=== PATIENT | female | born 1980 | race Caucasian/White ===

== ENCOUNTER 2018-02-28 00:23 | Observation (INO) | payer BC ==
[~2018-02-28] VITALS: Ht 167.6 cm; Wt 75.3 kg
[2018-02-28] VITALS (7 sets, daily range): BP systolic 88–103; BP diastolic 50–68
[~2018-02-28 00:23] MED LIST: ACET-3017 PO; IBUP-2704 PO; PNV1TABL70 PO; SCOP1PAT16 TD
[2018-02-28] MEDS ORDERED: NORMOSOL R SOLN(*) 1000 ML BAG 1,000 ML IV PRN (06:30)
[2018-02-28] MEDS ORDERED: cefOXitin/DEX(*) 2GM/50ML PREM 50 ML IVPB ONE (06:30)
[2018-02-28] MEDS ORDERED: LIDOCAINE/SOD BICARB 8.4% SYR ID ONE (06:30)
[2018-02-28] MEDS ORDERED: FAMOTIDINE 20 MG TAB PO ONE (06:30)
[2018-02-28] MEDS ORDERED: MIDAZOLAM 2 MG/2 ML VIAL IVP PRN (06:30)
[2018-02-28] MEDS ORDERED: ONDANSETRON 4 MG/2 ML VIAL ONE (10:03)
[2018-02-28] MEDS ORDERED: DEXAMETHASONE SOD 4 MG/ML VIAL ONE (10:03)
[2018-02-28] MEDS ORDERED: PROPOFOL EMUL(*) 10MG/ML 20 ML 20 ML ONE (10:03)
[2018-02-28] MEDS ORDERED: SUGAMMADEX SOD 200 MG/2 ML SDV ONE (10:03)
[2018-02-28] MEDS ORDERED: LIDOCAINE MPF 1% 5 ML VIAL ONE (10:03)
[2018-02-28] MEDS ORDERED: ROCURONIUM BROM 10 MG/ML 10 ML ONE (10:03)
[2018-02-28] MEDS ORDERED: fentaNYL CITR 250 MCG/5 ML AMP ONE ×2 (10:04→10:05)
[2018-02-28] MEDS ORDERED: VASOPRESSIN 20 UNIT/ML VIAL ONE (10:05)
[2018-02-28] MEDS ORDERED: MANNITOL* (20%)100 GM/500ML BG 500 ML IVPB ONE (10:05)
[2018-02-28] MEDS ORDERED: NS(*) 0.9% 100 ML BAG 100 ML ONE (10:05)
[2018-02-28] MEDS ORDERED: ROPIVACAINE 0.2% 20 ML VIAL ONE (10:05)
[2018-02-28] MEDS ORDERED: ESTROGENS CONJ VAG CREAM 30 GM TUBE PV ONE (10:05)
[2018-02-28] MEDS ORDERED: KETAMINE HCL-NS 50 MG/5 ML SYR ONE (10:06)
[2018-02-28 10:18] LABS: PLATELET COUNT, AUTOMATED 211 K/uL (150-450)
[2018-02-28] MEDS ORDERED: HYDROmorphone HCL 2 MG/ML SDV ONE (10:20)
[2018-02-28] MEDS ORDERED: KETOROLAC 30 MG/ML VIAL ONE (12:39)
[2018-02-28] MEDS ORDERED: SIMETHICONE 80 MG CHEW CHEW PRN (13:20)
[2018-02-28] MEDS ORDERED: ONDANSETRON 4 MG/2 ML VIAL IV PRN (13:20)
[2018-02-28] MEDS ORDERED: ACETAMINOPHEN 325 MG TAB PO PRN (13:20)
[2018-02-28] MEDS ORDERED: HYDROmorphone HCL 2 MG TAB PO PRN (13:20)
[2018-02-28] MEDS ORDERED: ZOLPIDEM TARTRATE 10 MG TAB PO PRN (13:20)
[2018-02-28] MEDS ORDERED: PROMETHAZINE 25 MG/ML 1 ML AMP IVP PRN (13:20)
[2018-02-28] MEDS ORDERED: IBUP800T37 PO (13:26)
[2018-02-28] MEDS ORDERED: OXYC-865 PO (13:26)
[2018-02-28] MEDS ORDERED: DOCU-416 PO (13:26)
--- NOTE | 2018-02-28 13:27 | Post Operative Note ---
Operative Note - CUSTOMER RETENTION REPRESENTATIVE Operative Day Date: Feb 28, 2018 Time: 13:25 Physicians Surgeon: Lucille Senior Java Engineer: Marnie Monroe Anesthesia: GETA Diagnosis Pre-Op Diagnosis: Dysmenorrha Dyspareunia menorrhagia Post-Op Diagnosis: same Procedure Findings: enlarged uterus normal ovaries grade 2 rectocele Procedure(s): RATLH bilateral salpingectomy MMC cystoscopy posterior repair Specimen Removed:(Maybe N/A): uterus, tubes Complications: [id number] Fluids Fluids: 1600 ml Estimated Blood Loss: minimal Dictated Date OP Note Dictated: Feb 28, 2018 Time OP Note Dictated: 13:27 Copies to: ROMELIA MADRIGAL MD ; ROMELIA MADRIGAL MD Feb 28, 2018 13:27
--- NOTE | 2018-02-28 14:11 | OPERATIVE REPORT 1 ---
EVENT DATE: February 28, 2018 SURGEON: Baldemar Adkins MD ANESTHESIOLOGIST: Koby Fitzpatrick MD ANESTHESIA: General endotracheal. UPPER EXTREMITY SURGEON: Marnei Monroe PA-C PREOPERATIVE DIAGNOSIS 1. Deep dyspareunia. 2. Menorrhagia. 3. Secondary dysmenorrhea. 4. Rectocele. POSTOPERATIVE DIAGNOSIS 1. Deep dyspareunia. 2. Menorrhagia. 3. Secondary dysmenorrhea. 4. Rectocele. PROCEDURE PERFORMED 1. Robotic assisted total laparoscopic hysterectomy. 2. Bilateral salpingectomy. 3. Modified Avalos's culdoplasty. 4. Diagnostic cystoscopy. 5. Posterior colporrhaphy. ESTIMATED BLOOD LOSS Minimal. FLUIDS 1600 cc IV Crystalloid. URINE OUTPUT Not measured. FINDINGS Enlarged boggy appearing uterus with lateral varicosities, normal appearing ovaries and tubes bilaterally, normal bladder with excellent urine jets post procedure, grade II distal rectocele. DESCRIPTION OF PROCEDURE The patient was brought to the operating room and placed under general endotracheal anesthesia. She was moved to the dorsal lithotomy position and prepped and draped in the usual sterile fashion. A weighted speculum was placed in the vagina and the cervix was grasped on the anterior lip with a single tooth tenaculum. The uterus was carefully sounded to a depth of 9 cm. A large VCare uterine manipulator was selected and assembled. The cervix was dilated to accommodate it. It was passed through the cervix and into the uterus, bulb inflated, and secured and the VCare cup was sutured to the cervix. The pneumocup was approximated against this cup and secured in place. A Raymond catheter was placed to dependent drainage. The legs were brought back to the supine position and gloves were changed. The target anatomy was approximated and we measured 12 cm above which ended up being the superior umbilicus. It was infiltrated with 0.2% Naropin and an 8 mm stab incision was made. The anterior abdominal wall was elevated while the Veress needle was passed through this incision into the abdomen and negative pressure was observed on the insufflator with elevating of the anterior abdominal wall, confirming an intraabdominal presence. The pneumoperitoneum was created to an intraabdominal pressure of 20 mmHg. The Veress needle was removed and an 8 mm bladeless trocar was passed through this incision into the abdomen under direct visualization with the scope and performed without incident. Additional ports were placed as follows: A robotic port 8 cm left lateral to the umbilical port and an shampoo assistant port 8 mm left lateral to this port. These were placed under direct visualization and under a similar technique, to the right two additional robotic ports spaced cm apart under direct visualization with the scope. The patient was then moved to the Trendelenburg position at 23 degrees and bowel was swept out of the pelvis. The abdomen and pelvis wee surveyed with the above findings noted. The robot was then brought overlying the patient and was docked and targeted without incident. Each arm was positioned and docked with the appropriate instruments, with the Vessel Sealer on the robotic arm #1, camera on #2, monopolar scissors on #3 and ProGrasp on #4. All instruments were guided into the patient's abdomen under direct visualization. All ports were burped and approximated for remote center. Upon completion, I scrubbed out of the patient's bedside and presented at the console. The hysterectomy proceeded as follows: The right fallopian tube was grasped and put on stretch. It was dissected away from its pelvic attachment through the mesosalpinx, up to the uteroovarian ligament. This was then cauterized and transected with the Vessel Sealer. This proceeded up through the round ligament which was in likewise fashion, cauterized and transected entering the broad ligament. This was then in the anterior and posterior leaflets. The anterior dissection was performed, dissecting the bladder away from the lower uterine segment and exposing the indentation of the underlying VCare cup. Anterior colpotomy incision was then performed to identify this cup. Posteriorly, the uterine vasculature was skeletonized in a similar fashion and the uterine vessels were taken at a perpendicular angle in two separate bites with the Vessel Sealer and transected. Parallel bites along the lateral uterus down to and overlying the VCare cup was then performed without incident. The same procedure was followed on the contralateral side. In likewise fashion, dissecting away the tube through the mesosalpinx, cauterizing and transecting the uteroovarian ligament, cauterizing and transecting the round ligament, and entering the broad ligament into anterior and posterior leaflets, completing the anterior dissection and skeletonizing the vessels on this side posteriorly down to the uterosacral ligament. The uterine vessels were then cauterized at a perpendicular angle times 2 and transected and parallel bites along the lateral uterus down to and overlying the VCare cup was then performed allowing that vascular pedicle to fall away. The colpotomy incision was further extended anteriorly and circumferentially around the uterus, through the uterosacral ligaments bilaterally, and to the contralateral side completing the colpotomy incision. The uterus was removed through the vagina. Instruments were changed and the vaginal repair procedure as follows: The right vaginal angle was sutured with a 0 Vicryl and secured to the ipsilateral uterosacral ligament in a [id number] fashion. The same procedure was followed on the contralateral side. The remaining vaginal cuff was then repaired using a 2-0 V-Loc in a running unlocking fashion. The entire incision was then oversewn back towards the right side to further reinforce and support the vaginal repair. No visible complications. The pelvis was copiously irrigated and suctioned dry. All instruments were then removed from the patient. The robot was then docked. The pneumoperitoneum was suctioned out. Trocars were removed. The skin incisions were repaired with a 4-0 Monocryl subdermal and covered with Dermabond skin adhesive. Diagnostic cystoscopy was performed with no visible injuries to the bladder and both ureteral orifices with excellent strong urine jets confirming ureteral patency. The bladder was allowed to drain and we proceeded now with the posterior repair. The legs were brought back to the lithotomy position. The area was inspected. A distal grade II rectocele was observed. The trista shaped wedge resection of the perineal body was performed in order to rebuild the perineal body and a linear incision along the length of the defect was then made after infiltrating with a diluted Pitressin solution. The vaginal mucosa was dissected away from the underlying endopelvic fascia. 2-0 Vicryl was then used to create a running purse string stitch to reduce the size of the defect, followed by Joi plication stitches along the length of the defect and oversewing this times two. A finger was then inserted into the rectum to palpate the repair and site specific additional repair was performed. Gloves were changed and the excess vagina was trimmed away. The remaining vaginal cuff was repaired using a 2-0 Vicryl in a running locking stitch and the perineal body was rebuilt as is typical for second degree obstetrical repair with an excellent result. No visible complications. The vaginal was then packed with a Kerlix sponged moistened with Premarin cream. The Raymond catheter was replaced to dependent drainage. She tolerated the procedure well. Legs were brought back to the supine position. She was awakened from general anesthesia in stable condition. Sponge, lap, needle and instrument counts were all correct times 2. MTDD
[2018-02-28] MEDS: DLR(*) 1000 ML BAG 1,000 ML IV PRN ×2 (16:49→23:17)
[2018-02-28] MEDS: KETOROLAC 30 MG/ML VIAL IVP SCH ×2 (18:18→23:19)
--- NOTE | 2018-02-28 20:55 | OB/GYN Progress Note ---
OB Subjective Progress Notes Subjective Feeling well. Some discomfort from the vaginal packing but no outright pain. Toradol IV is holding her well. Ambulating well. 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 Packing and weinberg out in the AM. Recommending continue stool softeners until seen in office again at 2 weeks. Call with problems or complications. (2) History of robot-assisted laparoscopic hysterectomy ROMELIA MADRIGAL MD Feb 28, 2018 20:55
[2018-02-28] MEDS: FAMOTIDINE 20 MG TAB PO SCH (23:02)
[2018-02-28] MEDS: DOCUSATE CALCIUM 240 MG CAP PO SCH (23:02)
[2018-03-01 03:30] VITALS: BP 107/70
[2018-03-01] MEDS: KETOROLAC 30 MG/ML VIAL IVP SCH (05:54)
[2018-03-01 06:18] LABS: PLATELET COUNT, AUTOMATED 176 K/uL (150-450)
--- NOTE | 2018-03-01 08:23 | OB/GYN Discharge Summary ---
Discharge Summary Reason for Hosp/Final Diag: (1) Other specified aftercare following surgery Hospital Course & Plan: Reviewed her discharge instructions. Packing and weinberg removed this am without complication. Recommending continue stool softeners until seen in office again at 2 weeks. Call with problems or complications. (2) History of robot-assisted laparoscopic hysterectomy [place] Vital Signs Vital Signs Date Time Temp Pulse Resp B/P (MAP) Pulse Ox O2 Delivery O2 Flow Rate FiO2 03/01/18 05:30 18 Room Air 03/01/18 04:30 90 03/01/18 03:30 99.3 69 107/70 (82) 02/28/18 19:00 2.0 Weight (Pounds): 166 Weight (Ounces): 2.0 Result Diagram: 03/01/18 0600 Condition: Improved Discharge: Home, Self Longterm Meds Active Scripts Oxycodone Hcl/Acetaminophen (PERCOCET 5-325 MG TABLET) 1 Each Tablet, 1 EACH PO Q4-6H PRN for PAIN, #20 TAB 0 Refills TAKE 1 TABLET NEEDED FOR PAIN - NO CLOSER THAN EVERY 4-6 HOURS. Prov:IAN SIMMS 02/28/18 Reported Medications Scopolamine (Scopolamine) 1 Mg/3 Day Patch.td.3, 1.[address] BEHIND EAR AT BEDTIME NIGHT BEFORE SURGERY 02/26/18 [facility] [phone], Dr. Adkins [phone] Follow up in: 2 wks PO Discharge Diet: As Tolerates Discharge Activity: No Heavy Lifting x 6 wks, Pelvic Rest Special Instructions: No driving on narcotic pain medication. Pelvic rest x 6 weeks. IAN SIMMS Mar 01, 2018 08:23
--- NOTE | 2018-03-01 08:25 | OB/GYN Progress Note ---
OB Subjective Progress Notes Subjective POD #1 from RAH and posterior repair. Packing and weinberg removed this morning without significant bleeding. She has been tolerating PO without nausea or vomiting. Ambulating. GI: POS Flatus; NEG Nausea, NEG Vomiting : Vaginal Bleeding, Scant Pain: Moderate, Tolerating PO Pain Meds OB Objective Physical Exam Vital Signs Date Time Temp Pulse Resp B/P (MAP) Pulse Ox O2 Delivery O2 Flow Rate FiO2 03/01/18 05:30 18 Room Air 03/01/18 04:30 90 03/01/18 03:30 99.3 69 107/70 (82) 02/28/18 19:00 2.0 Intake and Output 03/01/18 07:00 Intake Total 3250 ml Output Total 1900 ml Balance 1350 ml Intake Oral 500 ml IV Total 2750 ml Output Urine Total 1900 ml General Appearance: Alert/Awake/No Acute Distress Respiratory: No Respiratory Distress Abdomen: Soft, Non-Tender, Non-Distended Incision: Clean, Dry, Intact, Dermabond Extremities: No Cyanosis,Clubbing or Edema Psychological: Alert & Oriented X3, Appropriate Mood & Affect Result Diagram: 03/01/18 0600 Assessment and Plan Post Op Day: 1 Problems: (1) Other specified aftercare following surgery Assessment & Plan: Reviewed her discharge instructions. Packing and weinberg removed this am without complication. Discharge home today if able to void after weinberg removal. Recommending continue stool softeners until seen in office again at 2 weeks. Call with problems or complications. (2) History of robot-assisted laparoscopic hysterectomy IAN SIMMS Mar 01, 2018 08:25
[2018-03-01] MEDS ORDERED: INFLUENZA VIRUS VAC 0.5ML SYR IM ONLY ONE (09:00)
[2018-03-01] MEDS: FAMOTIDINE 20 MG TAB PO SCH (09:06)
[2018-03-01] MEDS: DOCUSATE CALCIUM 240 MG CAP PO SCH (09:06)
[2018-03-01 09:10] VITALS: BP 102/68
[2018-03-01] MEDS ORDERED: IBUPROFEN 800 MG TAB PO PRN (12:00)
== END 2018-03-01 08:21 | disposition home or self-care (01) ==
LOC: OR 00:23 → INTOOBSV 14:45 → OB 14:45
PROVIDERS: ADMIT Obstetrics & Gynecology; ATTEND Obstetrics & Gynecology
DX: N72 Inflammatory disease of cervix uteri (principal); N94.12 Deep dyspareunia; N94.5 Secondary dysmenorrhea; N92.0 Excessive and frequent menstruation with regular cycle; N81.6 Rectocele
CPT/HCPCS: 36415; 58571; 84703; 85025; 88307; 96372; G0378; J0694; J1100; J1170; J1885; J2001; J2250; J2405; J2704; J2795; J3010; J3490; J7050; S2900

== ENCOUNTER 2018-03-06 23:35 | Day surgery (SDC) | payer BC ==
[~2018-03-06 23:35] MED LIST changes: +DOCU-416 PO; +IBUP800T37 PO; +OXYC-865 PO
--- NOTE | 2018-03-06 23:40 | ER Report ---
History and Physical Time Seen By MD: 23:37 HPI/ROS CHIEF COMPLAINT: Vaginal bleeding HISTORY OF PRESENT ILLNESS: 37 year-old female status post 7 days postop from a robotic-assisted hysterectomy and vaginal cuff repair by Dr. Adkins. Patient christiane, 9 PM began to have some vaginal bleeding. Initially she passed a few thumb-sized clots. Now she passed a large clot. She is sent in for evaluation by Dr. Adkins. Patient reports no pain. She's had no fever or chills. REVIEW OF SYSTEMS: Respiratory: No cough, no dyspnea. Cardiovascular: No chest pain, no palpitations. Gastrointestinal: No vomiting, no abdominal pain. Musculoskeletal: No back pain. Allergies: Coded Allergies: No Known Drug Allergies (Unverified , 03/06/18) Home Meds Active Scripts Docusate Sodium (COLACE) 100 Mg Capsule, 100 MG PO BID PRN for CONSTIPATION for 10 Days, #20 CAPSULE Prov:IAN SIMMS 02/28/18 Oxycodone Hcl/Acetaminophen (PERCOCET 5-325 MG TABLET) 1 Each Tablet, 1 EACH PO Q4-6H PRN for PAIN, #20 TAB 0 Refills TAKE 1 TABLET NEEDED FOR PAIN - NO CLOSER THAN EVERY 4-6 HOURS. Prov:IAN SIMMS 02/28/18 Ibuprofen (IBUPROFEN) 800 Mg Tablet, 1 TAB PO Q8H, #30 TAB 0 Refills Take with food every 8 hours. Prov:IAN SIMMS 02/28/18 Discontinued Reported Medications Scopolamine (Scopolamine) 1 Mg/3 Day Patch.td.3, 1.[address] BEHIND EAR AT BEDTIME NIGHT BEFORE SURGERY 02/26/18 Reviewed Nurses Notes: Yes Old Medical Records Reviewed: Yes Hx Smoking: No Smoking Status: Never Smoker Exposure to Second Hand Smoke?: No Hx Substance Use Disorder: No Hx Alcohol Use: No Constitutional Vital Sign - Last 24 Hours 03/06/18 03/06/18 03/06/18 03/07/18 23:41 23:42 23:50 00:00 Temp 98.7 Pulse 67 72 Resp 18 B/P (MAP) 128/87 (101) 128/87 126/85 (99) Pulse Ox 96 95 O2 Delivery Room Air 03/07/18 03/07/18 03/07/18 03/07/18 00:05 00:20 00:30 00:35 Pulse 74 63 70 B/P (MAP) 115/84 (94) Pulse Ox 95 95 98 03/07/18 03/07/18 03/07/18 00:50 00:55 01:00 Pulse 78 66 B/P (MAP) 115/82 (93) Pulse Ox 94 94 96 Physical Exam General Appearance: The patient is alert, has no immediate need for airway protection and no current signs of toxicity. Vital signs stable, afebrile, pulse ox normal Eyes: Pupils equal and round no injection. Respiratory: Chest is non tender, lungs are clear to auscultation. Cardiac: regular rate and rhythm Gastrointestinal: Abdomen is soft and non tender, no masses, bowel sounds normal. Genital: Examination of the vaginal vault. There is dehiscence over on the left side. There is active bleeding. The top of the vaginal cuff. Musculoskeletal: Neck: Neck is supple and non tender. Extremities have full range of motion and are non tender. Skin: No rashes or lesions. DIFFERENTIAL DIAGNOSIS: After history and physical exam differential diagnosis was considered for postoperative vaginal bleeding, vaginal cuff repair, suture dehiscence Medical Decision Making Data Points Result Diagram: 03/07/18 0000 Laboratory Hematology Test 03/07/18 00:00 Red Blood Count 4.57 M/uL (4.17-5.56) Mean Corpuscular Volume 90.8 fL (80.0-96.0) Mean Corpuscular Hemoglobin 31.2 pg (26.0-33.0) Mean Corpuscular Hemoglobin Concent 34.4 g/dL (32.0-36.0) Red Cell Distribution Width 12.4 % (11.5-14.5) Mean Platelet Volume 9.5 fL (7.2-11.1) Neutrophils (%) (Auto) 63.7 % (39.4-72.5) Lymphocytes (%) (Auto) 25.5 % (17.6-49.6) Monocytes (%) (Auto) 7.5 % (4.1-12.4) Eosinophils (%) (Auto) 3.0 % (0.4-6.7) Basophils (%) (Auto) 0.3 % (0.3-1.4) Nucleated RBC Relative Count (auto) 0.1 /100WBC Neutrophils # (Auto) 7.1 K/uL (2.0-7.4) Lymphocytes # (Auto) 2.9 K/uL (1.3-3.6) Monocytes # (Auto) 0.8 K/uL (0.3-1.0) Eosinophils # (Auto) 0.3 K/uL (0.0-0.5) Basophils # (Auto) 0.0 K/uL (0.0-0.1) Nucleated RBC Absolute Count (auto) 0.01 K/uL Chemistry Test 03/07/18 00:00 White Blood Count 11.2 k/uL (4.5-11.0) Red Blood Count 4.57 M/uL (4.17-5.56) Hemoglobin 14.3 g/dL (12.0-16.0) Hematocrit 41.5 % (34.0-47.0) Mean Corpuscular Volume 90.8 fL (80.0-96.0) Mean Corpuscular Hemoglobin 31.2 pg (26.0-33.0) Mean Corpuscular Hemoglobin Concent 34.4 g/dL (32.0-36.0) Red Cell Distribution Width 12.4 % (11.5-14.5) Platelet Count 174 K/uL (150-450) Mean Platelet Volume 9.5 fL (7.2-11.1) Neutrophils (%) (Auto) 63.7 % (39.4-72.5) Lymphocytes (%) (Auto) 25.5 % (17.6-49.6) Monocytes (%) (Auto) 7.5 % (4.1-12.4) Eosinophils (%) (Auto) 3.0 % (0.4-6.7) Basophils (%) (Auto) 0.3 % (0.3-1.4) Nucleated RBC Relative Count (auto) 0.1 /100WBC Neutrophils # (Auto) 7.1 K/uL (2.0-7.4) Lymphocytes # (Auto) 2.9 K/uL (1.3-3.6) Monocytes # (Auto) 0.8 K/uL (0.3-1.0) Eosinophils # (Auto) 0.3 K/uL (0.0-0.5) Basophils # (Auto) 0.0 K/uL (0.0-0.1) Nucleated RBC Absolute Count (auto) 0.01 K/uL ED Course/Re-evaluation Clinical Indication for ER IV: Hydration, IV Access ED Course Patient was admitted to an examination room. H&P was done. The differential diagnoses was considered. On clinical examination. On initial examination of the vaginal cuff. There was no active bleeding. A bunch of large clots were removed. There appeared to be a fresh dark clot in the left upper apex of the vaginal cuff. On reevaluation patient has bled almost 250 mL of blood. There is fresh bleeding coming from this area. It appears to be slightly dehisced. 03/07/2018 1:03:39 am case discussed with Dr. Adkins who will come and see the patient and potentially take her to the OR for repair of her vaginal cuff bleeding Decision to Disposition Date: Mar 07, 2018 Decision to Disposition Time: 01:03 Depart Departure Latest Vital Signs Vital Signs Date Time Temp Pulse Resp B/P (MAP) Pulse Ox O2 Delivery O2 Flow Rate FiO2 03/07/18 01:00 66 115/82 (93) 96 03/06/18 23:42 98.7 18 Room Air Impression: Primary Impression: Postoperative vaginal bleeding Additional Impression: History of robot-assisted laparoscopic hysterectomy Condition: Improved Disposition: ADMIT FROM ER TO OR Problem Qualifiers MAIK ORR DO Mar 06, 2018 23:40
[2018-03-07] MEDS ORDERED: NS(*) 0.9% 1000 ML BAG 1,000 ML IV ONE
[2018-03-07 00:25] LABS: PLATELET COUNT, AUTOMATED 174 K/uL (150-450)
[2018-03-07] MEDS: NORMOSOL R SOLN(*) 1000 ML BAG 1,000 ML IV ONE ×2 (01:09→01:45)
[2018-03-07] MEDS ORDERED: MIDAZOLAM 2 MG/2 ML VIAL ONE (01:23)
[2018-03-07] MEDS ORDERED: ONDANSETRON 4 MG/2 ML VIAL ONE (01:24)
[2018-03-07] MEDS ORDERED: LIDOCAINE MPF 1% 5 ML VIAL ONE (01:24)
[2018-03-07] MEDS ORDERED: PROPOFOL EMUL(*) 10MG/ML 20 ML 60 ML ONE (01:24)
[2018-03-07] MEDS ORDERED: fentaNYL CITR 100 MCG/2 ML AMP ONE (01:28)
[2018-03-07 01:30] VITALS: BP 121/78
[2018-03-07] MEDS ORDERED: IBUPROFEN 800 MG TAB PO PRN (02:25)
[2018-03-07] MEDS ORDERED: LR(*) 1000 ML BAG 1,000 ML IV ONE (02:25)
--- NOTE | 2018-03-07 02:32 | Post Operative Note ---
Operative Note - MIDDLE SCHOOL DIRECTOR Operative Day Date: Mar 07, 2018 Time: 02:26 Physicians Surgeon: Lucille Anesthesia: MAC Diagnosis Pre-Op Diagnosis: cuff dehiscence Post-Op Diagnosis: postoperative wound disruption Procedure Findings: posterior repair wound disruption and bleeding Procedure(s): repair Specimen Removed:(Maybe N/A): [id number] Complications: none Fluids Fluids: 700 ml Estimated Blood Loss: 300 cc total from onset of problem Dictated Date OP Note Dictated: Mar 07, 2018 Time OP Note Dictated: 02:27 Copies to: ROMELIA MADRIGAL MD ; ROMELIA MADRIGAL MD Mar 07, 2018 02:32
[2018-03-07] MEDS ORDERED: ACETAMINOPHEN(*)1000 MG/100 ML 100 ML IVPB ONE (02:47)
[2018-03-07] MEDS ORDERED: KETOROLAC 30 MG/ML VIAL ONE (03:13)
--- NOTE | 2018-03-07 05:52 | OPERATIVE REPORT 1 ---
EVENT DATE: March 07, 2018 SURGEON: Baldemar Adkins MD ANESTHESIOLOGIST: Jason Wise MD ANESTHESIA: MAC. PREOPERATIVE DIAGNOSIS Postoperative vaginal cuff dehiscence. POSTOPERATIVE DIAGNOSIS Postoperative wound disruption on the posterior vagina. PROCEDURE PERFORMED Repair of postoperative wound disruption. FLUIDS IV crystalloid 700 mL. ESTIMATED BLOOD LOSS In total, approximately 300 mL since onset of the problem. INDICATIONS Radha underwent robotic total laparoscopic hysterectomy approximately seven days ago and called me last evening with report of sudden onset of bright red bleeding and passing clots. Initially, the clots appeared to be older in nature, and it was suspected that maybe they were clots originating from the original procedure and just now were working their way out of the vagina, but over the next several hours, as the evening progressed, more and more bright red bleeding was noted. I therefore asked the patient to come to the operating room for evaluation. The emergency room physician performed a pelvic examination, and it was his impression that the bleeding was coming from the apex of the vagina at the vaginal cuff, and there was a partial disruption. I therefore presented and explained to the patient that we would have to repair this dehiscence in the operating room to get adequate exposure. DESCRIPTION OF PROCEDURE The patient was brought to the operating room with an IV in place, placed under MAC anesthesia by Dr. Wise. She was then moved to the dorsal lithotomy position and received a vaginal prep. A lighted retractor was placed in the vagina while right-angle retractor was used to inspect the vaginal cuff, which was found to be completely intact with no visible dehiscence. Inspection of the posterior repair revealed bleeding emanating from the midportion of the posterior repair. There was a clot at the apex of the posterior repair that, once removed, was also oozing. Therefore, the posterior repair suture line was reinforced with 2-0 Vicryl in a running locking stitch along its entire length, up to the apex of the vaginal repair on the posterior side. Once this was completed, a sponge stick was used to dry the area and thoroughly inspect. There was no more visible bleeding. Again, the cuff was inspected at the apex and found to be intact, with no visible bleeding. Therefore, the procedure was terminated. She was administered 1 g of Mefoxin IV to cover any potential cuff infection that might be trying to develop. She was returned to the dorsal supine position and taken back to the postanesthesia recovery room in stable condition. All instruments, sponges, and needles were accounted for. MTDD
== END 2018-03-07 03:35 | disposition home or self-care (01) ==
LOC: ER 23:54 → OR 03-07 01:05
PROVIDERS: ATTEND Obstetrics & Gynecology
DX: T81.31XA Disruption of external operation (surgical) wound, not elsewhere classified, initial encounter (principal)
CPT/HCPCS: 12020; 85025; J0131; J0694; J1885; J2001; J2250; J2405; J2704; J3010; J7030